=== PATIENT | female | born 1955 | race Caucasian/White ===

== ENCOUNTER 2017-05-08 07:45 | Day surgery (SDC) | payer OTHER ==
[~2017-05-08] VITALS: Ht 165.1 cm; Wt 64.0 kg
[2017-05-08] VITALS (12 sets, daily range): BP systolic 90–120; BP diastolic 55–81; PULSE 64–78; RESP 12–20; Ht 165.1 cm; Wt 64.0 kg
[~2017-05-08 07:45] MED LIST: CEFAZOLIN 2 GM/50 ML (PMX) 50 ML IVPB SCH; ESTR1PAT60 TD; PROG100C5 PO; SEVOFLURANE 15 MIN ONE; SOD CHLORIDE 0.9% 1,000 ML IV SCH
--- NOTE | 2017-05-08 08:57 | RADRPT ---
PROCEDURE: XR Chest. CLINICAL INDICATION: Preoperative . TECHNIQUE: Single frontal chest x-ray. COMPARISON: None. FINDINGS: The lungs are clear of acute infiltrates, edema, effusions, or masses.. The cardiomediastinal silho uette is unremarkable. The osseous structures are intact. IMPRESSION: No acute cardiopulmonary disease. RPTAT: GG .Lamberto Hyatt MD, MD Date Time Electronically viewed and signed by .Lamberto Hyatt MD, MD on 05/08/2017 08:57 .L/
[2017-05-08] MEDS ORDERED: LEVO25TA53 PO (09:02)
[2017-05-08 09:27] LABS: BASOPHIL # 0.1 10^3/ul (0.0-0.1); BASOPHILS % 1.1 % (0.0-2.0); EOSINOPHILS # 0.2 10^3/ul (0.0-0.5); EOSINOPHILS % 3.7 % (0.0-7.0); HEMATOCRIT 41.7 % (37.0-47.0); HEMOGLOBIN 13.8 g/dl (12.0-16.0); LYMPHOCYTES # 1.3 10^3/ul (0.8-2.9); LYMPHOCYTES % 28.3 % (15.0-51.0); MEAN CORPUSCULAR HEMOGLOBIN 31.7 pg (29.0-33.0); MEAN CORPUSCULAR HGB CONC 33.1 g/dl (32.0-37.0); MEAN CORPUSCULAR VOLUME 95.9 fl (82.0-101.0); MEAN PLATELET VOLUME 10.5 fl (7.4-10.4); MONOCYTE # 0.4 10^3/ul (0.3-0.9); MONOCYTES % 7.7 % (0.0-11.0); NEUTROPHIL # 2.7 10^3/ul (1.6-7.5); PLATELET COUNT 184 10^3/UL (140-415); RED BLOOD COUNT 4.35 10^6/ul (4.20-5.40); RED CELL DISTRIBUTION WIDTH 12.9 % (11.5-14.5); WHITE BLOOD COUNT 4.6 10^3/ul (4.8-10.8)
[2017-05-08 09:38] LABS: ALBUMIN/GLOBULIN RATIO 1.48; BILIRUBIN,INDIRECT 0.4 mg/dl (0-1.1); BILIRUBIN,TOTAL 0.4 mg/dl (0.2-1.3); TOTAL PROTEIN 6.7 g/dl (6.1-8.1)
[2017-05-08 09:43] LABS: INR 0.91; PROTIME 12.3 Sec (12.2-14.2)
[2017-05-08 09:44] LABS: PARTIAL THROMBOPLASTIN TIME 29.4 Sec (25.0-35.0)
[2017-05-08 09:46] LABS: CALCIUM 9.2 mg/dl (8.4-10.2); CREATININE 0.82 mg/dl (0.44-1.00); POTASSIUM 3.9 mmol/L (3.5-5.1)
[2017-05-08] MEDS ORDERED: LIDOCAINE 2% (MDV) 20 ML INJ ONE (11:17)
[2017-05-08] MEDS ORDERED: BUPIVACAINE 0.25% (MPF) 30 ML INJ ONE (11:17)
[2017-05-08] MEDS ORDERED: BUPIVACAINE 0.5% (SDV) 30 ML INJ ONE (11:17)
[2017-05-08] MEDS ORDERED: PROPOFOL 20 ML ONE (11:23)
[2017-05-08] MEDS ORDERED: LIDOCAINE 2% (SDV) 5 ML INJ ONE (11:23)
[2017-05-08] MEDS ORDERED: MEPERIDINE 100 MG INJ ONE (11:24)
[2017-05-08] MEDS ORDERED: OXYCODONE/ACETAMINOPHEN (5/325) TAB PO PRN ×2 (11:30)
[2017-05-08] MEDS ORDERED: ONDANSETRON 4 MG INJ IV PRN (11:30)
[2017-05-08] MEDS ORDERED: LABETALOL HCL 20MG INJ IV PRN (11:30)
[2017-05-08] MEDS ORDERED: METOCLOPRAMIDE 10 MG INJ IV PRN (11:30)
[2017-05-08] MEDS ORDERED: HYDROmorphONE (0.2 MG/ML) 10ML SYG IV PRN ×3 (11:30)
[2017-05-08] MEDS ORDERED: hydrALAzine 20 MG INJ IV PRN (11:30)
[2017-05-08] MEDS ORDERED: EPHEDrine SULFATE 50 MG/5 ML SYG IV PRN (11:30)
[2017-05-08] MEDS ORDERED: MEPERIDINE 25 MG INJ IV PRN (11:30)
[2017-05-08] MEDS ORDERED: DIPHENHYDRAMINE 50 MG INJ IV PRN (11:30)
[2017-05-08] MEDS ORDERED: MIDAZOLAM 1 MG/ML 2 ML INJ IV PRN (11:30)
[2017-05-08] MEDS ORDERED: FENTAnyl 50 MCG/ML VIAL IV PRN ×2 (11:30)
[2017-05-08] MEDS ORDERED: ONDANSETRON 4 MG INJ ONE (11:42)
[2017-05-08] MEDS ORDERED: CEFAZOLIN 1 GM INJ ONE (11:42)
[2017-05-08] MEDS ORDERED: METOCLOPRAMIDE 10 MG INJ ONE (11:43)
--- NOTE | 2017-05-08 12:21 | OPR ---
Date/Time of Note Date/Time of Note DATE: 05/08/17 TIME: 12:09 Operative Report Procedure Date: May 08, 2017 Preoperative Diagnosis right back mass x 3 Postoperative Diagnosis same Operation Performed 1. right upper back mass excision with 5 cm mass 10 cm incision 2. right middle back mass excision with 10 cm mass same 10 cm incision 3. right lower back mass excision with 7 cm mass with 8 cm incision 4. localized adjacent tissue transfer with the use of skin flaps 36 sq cm defect 5. therapeutic injection of subcutaneous marcaine cpt code 22653 Surgeon Georgi Early MD Anesthesia Type: general Estimated Blood Loss: 0 - 10 ml's Specimens right upper back mass right middle back mass right lower back mass Grafts/Implants: none Complications: no Indications This is a 61-year-old female with multiple right back masses. She required surgical excision. Risks alternatives benefits and percent were discussed the patient. Potential complications include but not limited to bleeding infection recurrence of masses chronic pain were discussed with the patient. Patient expresses understanding consents to the operation. Procedure Description Patient is taken to the OR and prepped and draped in usual sterile fashion. Surgical timeout is performed. IV antibiotics given. Transverse incision was made with a 15 blade over the right lower back mass. Dissection cautery was carried onto the mass and circumferentially excised. Large mass is excised the surgical wound was irrigated there is good hemostasis that was established. Due to the tissue defect localized adjacent tissue transfer with these of skin flaps were performed. Multilayer closure with interrupted 3-0 Vicryl and skin chidi. Therapeutic subcu times Marcaine was injected throughout the incision. Attention was then paid to the right upper and right middle masses. Generous incision was made transversely with a 15 blade. Dissection cautery was carried onto the middle back mass. Mass is excised. There is good hemostasis. Using the same incision the superior mass was also accessed and excised using cautery. A dual site was irrigated the surgical site was irrigated and hemostasis was established. Due to the large tissue defect localized adjacent tissue transfer with these of skin flaps was performed. Multilayer closure with interrupted 3-0 Vicryl and skin chidi. Therapeutic subcutaneous Marcaine was injected throughout the incision site. Dry dressings were applied. Wallace EARLY May 08, 2017 12:21
[2017-05-08] MEDS: FENTAnyl 50 MCG/ML VIAL IV PRN ×2 (12:24→12:35)
[2017-05-08] MEDS ORDERED: HYDROCODONE/APAP (5/325) TAB PO ONE (12:30)
--- NOTE | 2017-05-08 20:19 | RADRPT ---
Vent Rate: 63 bpm RR Interval: 0 msec [place] Interval: 236 msec QRS Duration: 90 msec QT Interval: 454 msec QTC Interval: 464 msec P-R-T [place]: 61 - 18 - 38 degrees Sinus rhythm with 1st degree AV block Otherwise normal ECG Electronically Signed By: Dylan Rush [id number]
--- NOTE | 2017-05-13 10:58 | HP ---
DATE OF ADMISSION: 05/08/2017 INDICATIONS: This is a 61-year-old female, with multiple back masses, which she requires surgical excision. She is taken to the OR for operative management. PAST MEDICAL HISTORY: None. PAST SURGICAL HISTORY: Breast augmentation, back mass resections on prior occasions. SOCIAL HISTORY: No tobacco. Occasional alcohol. ALLERGIES: NO KNOWN DRUG ALLERGIES. EXAM: She has multiple back masses. ASSESSMENT AND PLAN: This is a 61-year-old female, with multiple back masses. She is scheduled for excision of multiple back masses. Dictated By: Sil Desouza /honoriot/ /Document#: [id number]
== END 2017-05-08 13:46 | disposition home or self-care (01) ==
LOC: SDS 07:45
PROVIDERS: ATTEND Surgery
DX: D17.1 Benign lipomatous neoplasm of skin and subcutaneous tissue of trunk (principal); E03.9 Hypothyroidism, unspecified
CPT/HCPCS: 14301; 21931; 71010; 80053; 85025; 85610; 85730; 88307; 93005; J0690; J2175; J2405; J3010; J2765